=== PATIENT | male | born 1955 | race Caucasian/White ===

== ENCOUNTER 2018-03-25 10:06 | Inpatient (IN) | payer OTHER ==
[2018-03-25] MEDS ORDERED: GABAPENTIN 300 MG CAP PO ONE (10:23)
[2018-03-25] MEDS ORDERED: POVIDONE-IODINE 20 ML in SODIUM CL IRRIG SOLUTION 500 ML IRR ONE (10:23)
[2018-03-25] MEDS ORDERED: ONDANSETRON 4 MG/2 ML VIAL IVP ONE (10:23)
[2018-03-25] MEDS ORDERED: ceFAZolin 2 GM/DEXTROSE 100 ML IV ONE (10:23)
[2018-03-25] MEDS ORDERED: DEXAMETHASONE 4 MG/ML VIAL IVP ONE (10:23)
[2018-03-25] MEDS ORDERED: FAMOTIDINE 20 MG TAB PO ONE (10:23)
[2018-03-25] MEDS ORDERED: ACETAMINOPHEN 325 MG TAB PO ONE (10:23)
[2018-03-25] MEDS ORDERED: ROPIVACAINE 0.2% 80 MG, EPINEPHrine 0.2 MG, KETOROLAC TROMETHAMINE 30 MG in SYRINGE 0 ML IU ONE (10:23)
[2018-03-25] MEDS ORDERED: LIDOCAINE 1% 2 ML INJ ID PRN (10:23)
[2018-03-25] MEDS ORDERED: LR 1,000 ML IV ONE (10:23)
[2018-03-25] MEDS ORDERED: TRANEXAMIC ACID 1,000 MG in NS 100 ML IV ONE (10:23)
--- NOTE | 2018-03-25 11:48 | PDHPUP ---
History & Physical Update H&P update statement: This history and physical update is based on an assessment of the patient which was completed after admission or registration (within 24 hours), but prior to the surgery/procedure. H&P update: H&P reviewed & patient examined
[2018-03-25] MEDS ORDERED: ceFAZolin 1 GM/5 ML SYR ONE (12:21)
[2018-03-25] MEDS ORDERED: MIDAZOLAM 2 MG/2 ML VIAL IVP ONE (12:37)
--- NOTE | 2018-03-25 12:37 | PDANEPAE ---
ANE History of Present Illness L hip OA ANE Past Medical History - Cardiovascular History Hx Hypertension: No Hx Arrhythmias: No Hx Chest Pain: No Hx Coronary Artery / Peripheral Vascular Disease: No Hx CHF / Valvular Disease: No Hx Palpitations: No - Pulmonary History Hx COPD: No Hx Asthma/Reactive Airway Disease: No Hx Recent Upper Respiratory Infection: No Hx Oxygen in Use at Home: No Hx Sleep Apnea: No Sleep Apnea Screening Result - Last Documented: Negative - Neurologic History Hx Cerebrovascular Accident: No Hx Seizures: No Hx Dementia: No - Endocrine History Hx Diabetes: No - Renal History Hx Renal Disorders: No - Liver History Hx Hepatic Disorders: No - Neurological & Psychiatric Hx Hx Neurological and Psychiatric Disorders: No - Cancer History Hx Cancer: No Cancer History Comment: PRE CA SPOTS REMOVED - Congenital Disorder History Hx Congenital Disorders: No - GI History Hx Gastrointestinal Disorders: No - Other Health History Other Health History: NEG - Chronic Pain History Chronic Pain: Yes (L HIP) - Surgical History Prior Surgeries: SHOULDER R SCOPE. WISDOM TEETH ANE Review of Systems Review of Systems: - Exercise capacity METS (RN): 5 METS ANE Patient History - Allergies Allergies/Adverse Reactions: No Known Allergies Allergy (Verified 03/14/18 13:40) - Home Medications Home medications: home medication list seen and reviewed Home Medications: Ibuprofen [Motrin (*)] 200 mg PO DAILY PRN 03/14/18 [Last Taken 03/18/18] - NPO status NPO Since - Liquids (Date): 03/25/18 NPO Since - Liquids (Time): 08:30 NPO Since - Solids (Date): 03/24/18 NPO Since - Solids (Time): 20:00 - Anes Hx Anes Hx: no prior problems - Smoking Hx Smoking Status: Never smoked - Family Anes Hx Family Hx Anesthesia Complications: NEG ANE Labs/Vital Signs - Vital Signs Blood Pressure: 109/69 Heart Rate: 56 Respiratory Rate: 16 O2 Sat (%): 95 Height: 180.34 cm Weight: 77.111 kg ANE Physical Exam - Airway Neck exam: FROM Mallampati Score: Class 3 Mouth exam: normal dental/mouth exam - Pulmonary Pulmonary: no respiratory distress, no rales or rhonchi - Cardiovascular Cardiovascular: regular rate and rhythym, no murmur, rub, or gallop - ASA Status ASA Status: I ANE Anesthesia Plan Anesthesia Plan: MAC, spinal
[2018-03-25] MEDS ORDERED: MIDAZOLAM 2 MG/2 ML VIAL ONE (12:38)
[2018-03-25] MEDS ORDERED: PROPOFOL/EMULSION 500 MG/50 ML BOTTLE IV ONE ×2 (12:43→13:28)
[2018-03-25] MEDS ORDERED: LIDOCAINE 2% 5 ML SDV ONE (12:44)
[2018-03-25] MEDS ORDERED: BUPIVACAINE/DEXTROSE 7.5MG/ML 2 ML SPINAL AMP SP ONE (12:45)
[2018-03-25] MEDS ORDERED: HYDROmorphONE/DILAUDID 1 MG/ML INJ IVP PRN (14:07)
[2018-03-25] MEDS ORDERED: ONDANSETRON 4 MG/2 ML VIAL IVP PRN ×2 (14:07→14:44)
[2018-03-25] MEDS ORDERED: NALOXONE HCL 0.4 MG/ML INJ IVP PRN (14:07)
[2018-03-25] MEDS ORDERED: fentaNYL 100 MCG/2 ML INJ IVP PRN (14:07)
--- NOTE | 2018-03-25 14:27 | POSTOPPROG ---
Post Op Note Date of Operation: 03/25/18 Surgeon: Patricio Cortez Dental Financial Coordinator: Adolfo/Enrrique Anesthesiologist: Dr. Tito Dwyer Anesthesia: IV Sedation, Spinal Post-op Diagnosis: Left hip severe degenerative arthritis. Procedure: Left hip [place] hip resurfacing arthroplasty. Inf/Abcess present in the surg proc area at time of surgery?: No EBL: 100-500
[2018-03-25] MEDS ORDERED: BISACODYL 10 MG SUPP PR PRN (14:44)
[2018-03-25] MEDS ORDERED: DIPHENOXYLATE/ATROPINE LOMOTIL 1 TAB PO PRN (14:44)
[2018-03-25] MEDS ORDERED: PROMETHAZINE HCL 25 MG SUPPR PR PRN (14:44)
[2018-03-25] MEDS ORDERED: TEMAZEPAM 15 MG CAP PO PRN (14:44)
[2018-03-25] MEDS ORDERED: PROMETHAZINE HCL 25 MG/ML INJ IVP PRN (14:44)
[2018-03-25] MEDS ORDERED: diphenhydrAMINE 25 MG CAP PO PRN (14:44)
[2018-03-25] MEDS ORDERED: ONDANSETRON DISINTEGRATING 4 MG TAB PO PRN (14:44)
[2018-03-25] MEDS ORDERED: LACTULOSE 20 GM/30 ML UDCUP PO PRN (14:44)
[2018-03-25] MEDS ORDERED: oxyCODONE IR 5 MG TAB PO PRN (14:44)
[2018-03-25] MEDS ORDERED: MAGNESIUM HYDROXIDE 30 ML UDCUP PO PRN (14:44)
[2018-03-25] MEDS ORDERED: NS 500 ML IV PRN (14:44)
[2018-03-25] MEDS ORDERED: POLYETHYLENE GLYCOL 3350 17 GM PKT PO PRN (14:44)
[2018-03-25] MEDS ORDERED: CYCLOBENZAPRINE 10 MG TAB PO PRN (14:44)
[2018-03-25] MEDS ORDERED: METOCLOPRAMIDE 10 MG/2 ML VIAL IVP PRN (14:44)
[2018-03-25] MEDS ORDERED: LR 1,000 ML IV SCH (15:00)
--- NOTE | 2018-03-25 15:02 | POSTANESTH ---
Post Anesthetic Evaluation Cardiovascular Status: Normal, Stable Respiratory Status: Normal, Stable Level of Consciousness/Mental Status: Alert and Oriented Pain Control: Adequate, Prn Tx Ordered Nausea/Vomiting Control: Adequate, Prn Tx Ordered Complications Possibly Related to Anesthesia: None Noted
--- NOTE | 2018-03-25 15:10 | GOP ---
[f rep st] OPERATIVE REPORT DATE OF OPERATION: 03/25/2018 SURGEON: Patricio Cortez MD STEAM PRESS TENDER: Richard Mata CFA. Naresh Osuna, PAC. ANESTHESIA: Combination of Marcaine, spinal, and IV sedation. ANESTHESIOLOGIST: Tito Dwyer MD. PREOPERATIVE DIAGNOSIS: Left hip severe degenerative arthritis. POSTOPERATIVE DIAGNOSIS: Left hip severe degenerative arthritis. PROCEDURE PERFORMED: Left hip Mabel hip resurfacing arthroplasty. FINDINGS: ESTIMATED BLOOD LOSS: About 400 mL. DESCRIPTION OF PROCEDURE: The patient was given 2 g of IV Ancef preoperatively within 60 minutes of surgery. He also received IV tranexamic acid at a dose of a 1000 mg. He was placed on the operating room table and given spinal anesthesia with Marcaine by Dr. Dwyer. He was then placed supine and given IV sedation. A Blackmon catheter was not used. He wore a compressive stocking and SCD on th e nonoperative leg. He was rolled to the right lateral decubitus position. An axillary roll was use d, and all pressure points were padded. The position was secured with the pegboard table attachment. I was careful to lock his pelvis in a vertical position. His perineum was isolated with plastic ad hesive drapes. The left hip and left lower extremity were prepped with ChloraPrep. They were draped free using sterile sheets, stockinette, and Ioban plastic drape. A [employer] time-out was performed to verify the correct patient identity and the cor rect surgical side and site. The [place] time-out was also performed. I made a 6-7 inch straight oblique posterolateral hip skin incision. The subcutaneous tissues were s harply divided, and hemostasis was obtained using electrocautery. His fascia roxanne was identified and split along the axis of its fibers. I curved posteriorly and proximally, and split the fascia of gl uteus bonifacio and bluntly split the muscle fibers in line with their orientation. His sciatic nerve was identified and protected throughout the procedure. The Charnley self-retaining retractor was ins erted. The external rotators and the posterior hip capsule were divided as separate layers at the ba se of the femoral neck, tagged, and reflected posteriorly. The gluteus bonifacio tendon was divided an d tagged in order to improve exposure and release tension on the sciatic nerve. His hip was dislocated posteriorly. I used a sizing gauge to check the diameter of the neck and conc luded that 50 mm was the proper head size. I performed a circumferential capsulotomy. I was able to retract the femoral head anteriorly and superiorly, and hold it out of place with appropriate retrac tors. The remnant of his damaged labrum was excised. His acetabulum was reamed sequentially up to 5 6 mm. I selected the Mabel monoblock porous-coated acetabular component with an outside diamete r of 56 mm. This was firmly impacted and was a very tight fit. I was careful to determine proper in clination and anteversion. I used the transverse acetabular ligament and other acetabular bony landm arks to help me determine proper cup orientation. He had a small posterior-inferior osteophyte which I removed with an osteotome and rongeur. I was careful to leave a small lip of bone and capsule ext ending beyond the anterior-inferior lip of the metal cup. I then returned to preparation of the femoral head. Using appropriate jigs and guides, I inserted a g uide pin into the femoral head and neck. I was careful to position it in such a way that there would be no notching of the neck. The large sterile metal goniometer was used to check the neck shaft ang le. I reamed over the guide pin and inserted a reaming guide. I then used the cylindrical reamer do wn to the head and neck junction. This was followed by the flat reamer and the chamfer reamer. The head was sized for 50 mm. There was no damage or impingement to the neck. He had good quality bone in his femoral head. I drilled a small hole in the lesser trochanter and inserted a suction cannula to create negative pressure in the medullary canal. Small holes were drilled on the flattened chamfe r surfaces of the prepared head for cement anchors. I removed some small anterior neck osteophytes. The head was thoroughly cleaned with the pulsating lavage and carefully dried. I used a CarboJet de vice to blow dry the cancellous surfaces. A single batch of Simplex cement with tobramycin was mixed . At about 50 seconds, I poured the liquid cement into the head component, inserted it onto the femo ral head, and impacted it into place. Excess cement was removed before it hardened. The acetabulum was irrigated, cleaned and inspected, and the hip was reduced. Stability and range of motion were checked. I placed my finger along the anterior aspect of the acetabular component and f lexed the hip to 110 degrees. There was no anterior impingement. The suction cannula in the lesser trochanter was removed. The wound was thoroughly irrigated with a dilute Betadine solution. 40 mL o f the joint anesthetic cocktail were injected into the capsule, the deep musculature, and the subcuta neous tissues along the skin edges. His sciatic nerve was reinspected and looked unharmed. The external rotators and the posterior capsu le were repaired in separate layers with #2 FiberWire sutures through drill holes in the greater troc hanter. The gluteus bonifacio tendon was repaired with two #2 [id number] FiberWire sutures. The fascia roxanne was repaired first with 2 interrupted [id number] #2 FiberWire sutures followed by a running #2 barbed Ethicon Stratafix PDO suture. The subcutaneous tissues were closed with a running 0 barbed Ethicon Stratafix Monoderm suture. The skin was closed with a running 3-[address] ratafix Monoderm subcuticular suture. The skin edge was reapproximated and sealed with Dermabond glu e. The wound was covered with a large sterile Mepilex waterproof dressing. The sacral Mepilex dress ing was also applied. IMPLANTS: I used a [employer] Mabel hip resurfacing system. The acetabular component was 56 mm in diameter and press-fit. The femoral head was 50 mm and cemented. He was awakened from ane sthesia and rolled to the supine position on his [facility]. A long-leg compressive stocking an d SCD were applied to the operative leg. He wore a stocking and SCD on the opposite leg during the p rocedure. An abduction pillow sling was placed between his knees. He was awakened from anesthesia, transferred to [facility], and taken to PACU in satisfactory condition. There were no recog nized intraoperative complications. The sponge and needle count were correct on 2 occasions. Richard Mata and Dima Osuna acted as surgical assistants. Their assistance was a medical necess ity for safe completion of the procedure. /[id number]/MODL
[2018-03-25] MEDS: traMADol 50 MG TAB PO PRN (16:33)
--- NOTE | 2018-03-25 17:14 | PDMN ---
Medical Necessity Medical necessity: Pt meets INPT criteria [place] [facility] [place] [place] [facility]
[2018-03-25] MEDS: ACETAMINOPHEN 325 MG TAB PO SCH (17:37)
[2018-03-25] MEDS: KETOROLAC 15 MG/1 ML SDV IVP SCH (17:39)
[2018-03-25] MEDS: FAMOTIDINE 20 MG TAB PO SCH (21:42)
[2018-03-25] MEDS: SENNOSIDES/DOCUSATE SODIUM TAB PO SCH (21:42)
[2018-03-25] MEDS: ceFAZolin 2 GM/DEXTROSE 100 ML IV SCH (21:42)
[2018-03-26] MEDS: ACETAMINOPHEN 325 MG TAB PO SCH ×3 (00:18→13:37)
[2018-03-26] MEDS: ASPIRIN 325 MG TAB PO SCH ×2 (00:18→08:05)
[2018-03-26] MEDS: KETOROLAC 15 MG/1 ML SDV IVP SCH ×3 (00:19→13:36)
[2018-03-26] MEDS: ceFAZolin 2 GM/DEXTROSE 100 ML IV SCH (05:22)
[2018-03-26] MEDS: FAMOTIDINE 20 MG TAB PO SCH (08:06)
[2018-03-26] MEDS: SENNOSIDES/DOCUSATE SODIUM TAB PO SCH (08:06)
[2018-03-26] MEDS ORDERED: FERROUS SULFATE 140 MG TAB.ER PO SCH (09:00)
[2018-03-26 11:45] VITALS: BP 98/58
--- NOTE | 2018-03-26 12:59 | SOAPPROG ---
SOAP Progress Note Assessment/Plan: Assessment: Afebrile. Moderate pain. Up and walking and has done stairs. H/H is good. Films look good. Needed Cath X 1 last night. Voiding spont now. Plan:DC today. 03/26/18 12:58 Objective: Vital Signs Temp Pulse Resp BP Pulse Ox 36.6 C 50 L 16 98/58 L 97 03/26/18 11:43 03/26/18 11:43 03/26/18 11:43 03/26/18 11:43 03/26/18 11:43 Laboratory Results 03/26/18 04:32 03/25/18 03/26/18 03/27/18 05:59 05:59 05:59 Intake Total 2230 200 Output Total 1350 500 Balance 880 -300 ICD10 Worksheet Patient Problems: Problems Problem Status Onset Osteoarthritis of left hip Acute
--- NOTE | 2018-03-26 13:09 | GDS ---
[f rep st] DISCHARGE SUMMARY ADMISSION DIAGNOSIS: Left hip severe degenerative arthritis. DISCHARGE DIAGNOSIS: Left hip severe degenerative arthritis. OPERATION PERFORMED: On 03/25/2018, a left hip [place] hip resurfacing arthroplasty. POSTOPERATIVE COMPLICATIONS: None. CONDITION ON DISCHARGE: Improved. DESCRIPTION OF HOSPITAL COURSE: The patient was admitted to the hospital on the morning of surgery. His admission CBC was normal. The same day, under a combination of Marcaine, spinal, and IV sedatio n, he underwent a left hip [place] hip resurfacing arthroplasty. Postoperatively, he was treated with multimodal DVT prophylaxis including aspirin and early mobilization. On the first postoperative day, his hemoglobin and hematocrit were 12.4 and 35.5. He was seen by Physical Therapy and made goo d progress with ambulation and stairs. By the time of discharge, he was afebrile, his wound was dry, and he was independent walking with a walker. DISPOSITION: The patient is discharged to his home. He may progress to full weightbearing on the le ft as tolerated. Use an abduction pillow in bed for 3 weeks. Use ERIC stockings for 1 week. Continu e aspirin 325 mg p.o. daily for 21 days. Continue Celebrex daily for 21 days. He has prescriptions for oxycodone and tramadol for pain control. I will see him back in the office on April 11, 2018. If any problems, he is to call me at the office. /[id number]/MODL
[2018-03-26] MEDS: traMADol 50 MG TAB PO PRN (13:38)
--- NOTE | 2018-03-26 14:44 | ASMTLACE ---
LACE Length of stay for Answers: 2 days current admission Acuity / Level of Answers: Yes Care: Did the patient have an inpatient admission? Comorbidities - select Answers: Opioid dependence all that apply / Chronic pain # of Emergency department Answers: 0 visits in the last 6 months Score: 9 Date Signed: 03/26/2018 02:44 PM Electronically Signed By:DAVID Harmon
--- NOTE | 2018-03-26 14:47 | ASMTCMCOM ---
CM Note CM Note Notes: Pt medically stable for d/c, no CM d/c needs identified. Date Signed: 03/26/2018 02:46 PM Electronically Signed By:DAVID Harmon
== END 2018-03-26 14:25 | disposition home or self-care (01) | DRG 470 ==
LOC: F3N 10:06 → OBSVTOIN 10:06 → EDSTATUS 11:15 → F3N 16:11
PROVIDERS: ADMIT Orthopaedic Surgery; ATTEND Orthopaedic Surgery
PROC: 0SUB0BZ Supplement Left Hip Joint with Resurfacing Device, Open Approach (ICD-10-PCS; principal; 2018-03-25 11:15)
DX: M16.12 Unilateral primary osteoarthritis, left hip (principal)
CPT/HCPCS: 97116-GP; 97161-GP; 97165-GO; 97535-GO; C1713; J0171; J0690; J1100; J1885; J2250; J2405; J2704; J2795